=== PATIENT | male | born 1995 | race Caucasian/White ===

== ENCOUNTER 2016-10-17 19:32 | Emergency (ER) | payer SELFPAY ==
[~2016-10-17] VITALS: Ht 172.7 cm; Wt 66.2 kg
[2016-10-17 21:21] VITALS: BP 147/51
== END 2016-10-17 21:21 | disposition home or self-care (01) ==
LOC: ED 19:32
DX: T22.00XA Burn of unspecified degree of shoulder and upper limb, except wrist and hand, unspecified site, initial encounter (principal); T20.00XA Burn of unspecified degree of head, face, and neck, unspecified site, initial encounter; X12.XXXA Contact with other hot fluids, initial encounter; Y93.G3 Activity, cooking and baking; Y92.89 Other specified places as the place of occurrence of the external cause; Y99.8 Other external cause status
CPT/HCPCS: J1170; Q0162